=== PATIENT | female | born 1955 | race Caucasian/White ===

== ENCOUNTER 2019-02-17 12:37 | Inpatient (IN) | payer OTHER ==
[2019-02-17] VITALS (9 sets, daily range): BP systolic 121–142; BP diastolic 72–87
[~2019-02-17] VITALS: Ht 175.3 cm; Wt 90.0 kg
[~2019-02-17 12:37] MED LIST: ASPI81TA49 PO; LISI-604 PO; METO-395 PO; TICA90TA PO; heparin 10,000 units/1 ML INJ ONE; heparin, porcine-25,000 units/D5-250ml premix IV ONE; normal saline 1000ML IV soln ONE
[2019-02-17] MEDS ORDERED: heparin 10,000 units/1 ML INJ IV STA (12:39)
[2019-02-17] MEDS ORDERED: fentaNYL/PF 50MCG/1 ML 2ML syringe ONE (12:46)
[2019-02-17] MEDS ORDERED: heparin 1,000unit/ml 10ml vial 10 ML ONE (12:46)
[2019-02-17] MEDS ORDERED: midazolam 2 mg/2 ml injection ONE (12:46)
[2019-02-17] MEDS ORDERED: iohexol 350 MG/1 ML 200ml bottle ONE (12:46)
[2019-02-17] MEDS ORDERED: LIDOcaine 1% (10mg/ml)w/preservative injection 20ml MDV ONE (12:46)
[2019-02-17 12:59] LABS: BASOPHILS # (AUTO) 0.1 X10'3 (0-0.2); BASOPHILS % (AUTO) 0.9 % (0-1); EOSINOPHILS # (AUTO) 0.2 X10'3 (0-0.9); HEMATOCRIT 38.6 % (35.0-45.0); HEMOGLOBIN 12.8 g/dl (12.0-16.0); LYMPHOCYTES # (AUTO) 1.7 X10'3 (1.1-4.8); LYMPHOCYTES % (AUTO) 24.5 % (21-51); MEAN CORPUSCULAR HEMOGLOBIN 28.9 PG (27.0-31.0); MEAN CORPUSCULAR HGB CONC 33.3 g/dL (33.0-36.5); MEAN CORPUSCULAR VOLUME 86.6 FL (78-98); MEAN PLATELET VOLUME 7.2 FL (7.4-10.4); MONOCYTES # (AUTO) 0.8 X10'3 (0-0.9); MONOCYTES % (AUTO) 12.3 % (2-12); NEUTROPHILS % (AUTO) 59.3 % (42-75); PLATELET COUNT 233 X10'3 (140-440); RED BLOOD COUNT 4.45 X10'6 (4.20-5.60); RED CELL DISTRIBUTION WIDTH 13.3 % (11.5-14.5); WHITE BLOOD COUNT 6.8 X10'3 (4.5-11.0)
--- NOTE | 2019-02-17 13:00 | NUR ---
[facility] TO [facility] JAMIA BARRON PT TO MANA[address].
[2019-02-17 13:10] LABS: ALANINE AMINOTRANSFERASE 30 U/L (12-78); ALBUMIN 3.5 G/DL (3.4-5.0); ALBUMIN/GLOBULIN RATIO 1.1 (1.1-1.5); ALKALINE PHOSPHATASE 85 IU/L (46-116); ANION GAP 14 (8-16); ASPARTATE AMINO TRANSFERASE 20 U/L (10-37); BILIRUBIN,TOTAL 0.5 MG/DL (0.1-1.0); BLOOD UREA NITROGEN 21 MG/DL (7-18); BUN/CREATININE RATIO 19.6 (6.6-38.0); CALCIUM 9.1 MG/DL (8.5-10.1); CHLORIDE 109 MMOL/L (99-107); CREATININE 1.07 MG/DL (0.40-0.90); GLUCOSE 138 MG/DL (70-104); POTASSIUM 3.1 MMOL/L (3.5-5.1); SODIUM 143 MMOL/L (135-145); TOTAL CARBON DIOXIDE 20.3 MMOL/L (24-32); TOTAL PROTEIN 6.8 G/DL (6.4-8.2); eGFR 52 ML/MIN
[2019-02-17 13:11] LABS: INR 1.1 INR; PARTIAL THROMBOPLASTIN TIME 23 SECONDS (22-32)
[2019-02-17] MEDS ORDERED: tirofiban 5mg in NS 100mL 100 ML IV ONE (13:15)
[2019-02-17 13:17] LABS: MAGNESIUM 1.7 MG/DL (1.5-2.4)
[2019-02-17] MEDS ORDERED: ticagrelor 90mg tablet ONE (13:30)
--- NOTE | 2019-02-17 13:45 | NUR ---
Received report from Tanesha BLANDON from slab puller and had opportunity to ask questions. Patient will be admitted to room 3024A.
--- NOTE | 2019-02-17 13:57 | NUR ---
patient admitted to room 3024A, accompanied by 2 lab scientist RNs. Patient transferred to bed. Vital signs taken and stable-BP 135/75, O2 97, HR 65, Pain 1/10 Temp 97.8
--- NOTE | 2019-02-17 14:23 | NUR ---
PAGER ID: [phone] MESSAGE: Faina [phone]. Coby Snigh 3024A. 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 Thank you!
[2019-02-17] MEDS ORDERED: proCHLORperazine 10 MG/2 ml inj IV PRN (14:30)
[2019-02-17] MEDS ORDERED: ondansetron/PF 4mg/2ml inj IV PRN (14:30)
[2019-02-17] MEDS ORDERED: HYDROcodone/acetaminophen 5mg/325mg tablet PO PRN (14:30)
[2019-02-17] MEDS ORDERED: nitroGLYCERIN 0.4mg SUBLingual tab SL PRN (14:30)
[2019-02-17] MEDS ORDERED: tirofiban 5mg in NS 100mL 100 ML IV SCH (14:30)
[2019-02-17] MEDS ORDERED: normal saline 1000ml 1,000 ML IV SCH (14:30)
--- NOTE | 2019-02-17 15:30 | NUR ---
Upon continuous reassessment of patient surgical site, noticed bleeding into dressing gauze. Got help from another nurse who held pressure while I called Dr Rangel. Per Dr Rangel, stopped Aggrastat and placed FemStop. Pedal pulses remain strong. Will continue to monitor closely
--- NOTE | 2019-02-17 17:49 | NUR ---
Per Dr Rangel, extending time s/p cath to lay flat from 4 hours to 6 hours due to placement of FemStop, which will be 2030. Reassess at that time if it is appropriate to allow patient to come off of bedrest and remove Femstop.
--- NOTE | 2019-02-17 17:59 | NUR ---
Patients potassium is 3.1. Patient currently unable to swallow in supine position, notified PM nurse to replace once patients mobility is increased.
--- NOTE | 2019-02-17 18:18 | NUR ---
Problems reprioritized. Patient report given, questions answered & plan of care reviewed with Matthew BLANDON and Leo BLANDON. Addendum: 02/17/19 at 1836 by Faina Winkler RN Assessed cath site/Femstop site with both RN's, no signs of bleeding or hematoma present.
--- NOTE | 2019-02-17 18:38 | NUR ---
Patient in room PCU 3024. I have received report from jessica and had the opportunity to ask questions and assume patient care.
--- NOTE | 2019-02-17 18:41 | NUR ---
Patient in room PCU 3027T. I have received report from JAMIA Eisenberg and had the opportunity to ask questions and assume patient care. Patient awake for bedside report and has at bedside. NS infusing at 100 mL/hr. Will continue to monitor closely.
--- NOTE | 2019-02-17 20:30 | NUR ---
Fem stop removed at 2029. No evidence of active bleed. Minimal bruising and discoloration surrounding catheter site. No palpable or visible hematoma anteriorly or posteriorly. Dorsalis Pedal pulses easily palpable. Will continue post-op vital signs and assess DP's.
[2019-02-17] MEDS ORDERED: potassium Cl 20 mEq SR tablet PO PRN (20:35)
[2019-02-17] MEDS ORDERED: potassium Cl 40MEQ/NS 500ml 500 ML IV PRN ×2 (20:35)
[2019-02-17] MEDS: ticagrelor 90mg tablet PO SCH (20:56)
[2019-02-17] MEDS: potassium Cl 20 mEq SR tablet PO PRN (21:04)
[2019-02-18] MEDS: potassium Cl 20 mEq SR tablet PO PRN ×2 (01:52→05:24)
[2019-02-18 02:18] VITALS: BP 151/97
[2019-02-18] MEDS: HYDROcodone/acetaminophen 10/325mg tab PO PRN ×3 (03:00→16:33)
[2019-02-18 06:00] VITALS: BP 140/90
[2019-02-18 06:04] LABS: BASOPHILS % (AUTO) 0.2 % (0-1); EOSINOPHILS % (AUTO) 0.3 % (0-6); HEMATOCRIT 37.8 % (35.0-45.0); HEMOGLOBIN 12.6 g/dl (12.0-16.0); LYMPHOCYTES # (AUTO) 0.9 X10'3 (1.1-4.8); LYMPHOCYTES % (AUTO) 7.7 % (21-51); MEAN CORPUSCULAR HEMOGLOBIN 28.8 PG (27.0-31.0); MEAN CORPUSCULAR HGB CONC 33.3 g/dL (33.0-36.5); MEAN CORPUSCULAR VOLUME 86.7 FL (78-98); MEAN PLATELET VOLUME 7.3 FL (7.4-10.4); MONOCYTES # (AUTO) 1.4 X10'3 (0-0.9); MONOCYTES % (AUTO) 12.1 % (2-12); NEUTROPHILS # (AUTO) 9.4 X10'3 (1.8-7.7); NEUTROPHILS % (AUTO) 79.7 % (42-75); PLATELET COUNT 225 X10'3 (140-440); RED BLOOD COUNT 4.37 X10'6 (4.20-5.60); RED CELL DISTRIBUTION WIDTH 13.6 % (11.5-14.5); WHITE BLOOD COUNT 11.8 X10'3 (4.5-11.0)
--- NOTE | 2019-02-18 06:16 | NUR ---
Problems reprioritized. Patient report given, questions answered & plan of care reviewed with JAMIA Eisenberg and SN Jaspal.
[2019-02-18 06:25] LABS: ALBUMIN 3.3 G/DL (3.4-5.0); ANION GAP 12 (8-16); BLOOD UREA NITROGEN 13 MG/DL (7-18); BUN/CREATININE RATIO 18.1 (6.6-38.0); CALCIUM 8.4 MG/DL (8.5-10.1); CHLORIDE 108 MMOL/L (99-107); CHOL/HDL RATIO 3.4 (0.00-4.99); CHOLESTEROL 153 MG/DL (0-200); CREATININE 0.72 MG/DL (0.40-0.90); GLUCOSE 126 MG/DL (70-104); HDL CHOLESTEROL 45 MG/DL (35-60); LDL CHOLESTEROL 91 MG/DL (50-100); POTASSIUM 4.1 MMOL/L (3.5-5.1); SODIUM 140 MMOL/L (135-145); TOTAL CARBON DIOXIDE 20.1 MMOL/L (24-32); TRIGLYCERIDES 123 MG/DL (20-135); eGFR 82 ML/MIN
--- NOTE | 2019-02-18 06:40 | NUR ---
Patient in room PCU 3024A. I have received report from Leo BLANDON and had the opportunity to ask questions and assume patient care. Addendum: 02/18/19 at 0702 by Faina Winkler RN Assessed right groin cath site. Site is soft with no sign of hematoma/induration.
[2019-02-18] MEDS: atorvastatin 20mg tablet PO SCH (07:41)
[2019-02-18] MEDS: metoprolol succinate 25mg (24-HOUR) SR. Tablet PO SCH (07:41)
[2019-02-18] MEDS: aspirin 81mg tab.chew PO SCH (07:42)
[2019-02-18] MEDS: ticagrelor 90mg tablet PO SCH ×2 (07:42→21:03)
[2019-02-18] MEDS ORDERED: lisinopril 5mg tablet PO SCH ×2 (08:00→21:00)
[2019-02-18] MEDS ORDERED: pneumococcal 23-VAL P-sac vacc 25 mcg/0.5ml vial IMVAC ONE (10:00)
[2019-02-18 11:00] VITALS: BP 123/82
[2019-02-18 15:00] VITALS: BP 124/79
--- NOTE | 2019-02-18 18:15 | NUR ---
Patient in room PCU 3026O. I have received report from JAMIA Eisenberg and had the opportunity to ask questions and assume patient care. Patient is awake for bedside report and daughter is in room. SL and stable at this time. Will continue to monitor closely.
--- NOTE | 2019-02-18 18:28 | NUR ---
Problems reprioritized. Patient report given, questions answered & plan of care reviewed with Leo BLANDON and Graham BLANDON.
[2019-02-18 19:00] VITALS: BP 130/84
[2019-02-18 23:00] VITALS: BP 113/77
[2019-02-19 03:00] VITALS: BP 112/75
[2019-02-19 05:14] LABS: BASOPHILS % (AUTO) 0.5 % (0-1); EOSINOPHILS # (AUTO) 0.2 X10'3 (0-0.9); EOSINOPHILS % (AUTO) 2.1 % (0-6); HEMATOCRIT 34.9 % (35.0-45.0); HEMOGLOBIN 11.7 g/dl (12.0-16.0); LYMPHOCYTES # (AUTO) 1.1 X10'3 (1.1-4.8); LYMPHOCYTES % (AUTO) 13.2 % (21-51); MEAN CORPUSCULAR HEMOGLOBIN 28.6 PG (27.0-31.0); MEAN CORPUSCULAR HGB CONC 33.6 g/dL (33.0-36.5); MEAN CORPUSCULAR VOLUME 85.1 FL (78-98); MEAN PLATELET VOLUME 7.4 FL (7.4-10.4); MONOCYTES % (AUTO) 11.8 % (2-12); NEUTROPHILS # (AUTO) 5.9 X10'3 (1.8-7.7); NEUTROPHILS % (AUTO) 72.4 % (42-75); PLATELET COUNT 192 X10'3 (140-440); WHITE BLOOD COUNT 8.2 X10'3 (4.5-11.0)
[2019-02-19 05:25] LABS: ALBUMIN 3.2 G/DL (3.4-5.0); ANION GAP 8 (8-16); BLOOD UREA NITROGEN 9 MG/DL (7-18); BUN/CREATININE RATIO 11.7 (6.6-38.0); CALCIUM 8.9 MG/DL (8.5-10.1); CHLORIDE 107 MMOL/L (99-107); CREATININE 0.77 MG/DL (0.40-0.90); GLUCOSE 101 MG/DL (70-104); POTASSIUM 3.9 MMOL/L (3.5-5.1); SODIUM 138 MMOL/L (135-145); TOTAL CARBON DIOXIDE 22.9 MMOL/L (24-32); eGFR 75 ML/MIN
[2019-02-19 06:00] VITALS: BP 117/82
--- NOTE | 2019-02-19 06:15 | NUR ---
[place] documentation: I have reviewed and agree with all interventions, assessments performed and documented by Leo BLANDON. [place] Medication Administration: For this medication-pass time frame, all medication were reviewed, dispensed, administered and documented per hospital policy by Leo BLANDON.
--- NOTE | 2019-02-19 06:16 | NUR ---
Problems reprioritized. Patient report given, questions answered & plan of care reviewed with JAMIA Eisenberg and JAMIA Schafer.
[2019-02-19] MEDS ORDERED: ATOR80TA PO (06:27)
[2019-02-19] MEDS ORDERED: NITR0.4T51 SL (06:27)
[2019-02-19] MEDS ORDERED: TICA90TA PO (06:27)
--- NOTE | 2019-02-19 06:43 | NUR ---
Patient in room PCU 3024A. I have received report from Graham BLANDON and Leo BLANDON and had the opportunity to ask questions and assume patient care.
[2019-02-19] MEDS: ticagrelor 90mg tablet PO SCH (07:48)
[2019-02-19] MEDS: atorvastatin 20mg tablet PO SCH (07:48)
[2019-02-19] MEDS: aspirin 81mg tab.chew PO SCH (07:48)
[2019-02-19] MEDS: metoprolol succinate 25mg (24-HOUR) SR. Tablet PO SCH (07:48)
--- NOTE | 2019-02-19 09:21 | NUR ---
Per MD patient stable for discharge. New prescriptions called in to [facility] in [place], discharge packet provided and all questions answered, IV's discontinued with catheters in tact, tele removed, all belongings sent with patient, escorted out in wheelchair accompanied by staff and family.
--- NOTE | 2019-02-19 10:30 | NUR ---
[place] documentation: I have reviewed and agree with all interventions, assessments performed and documented by Hanh BLANDON.
== END 2019-02-19 09:27 | disposition home or self-care (01) | DRG 246 ==
LOC: ER 12:37 → PCU 3S 15:37 → CMPBEDREQ 19:27
PROVIDERS: ADMIT Internal Medicine Interventional Cardiology; ATTEND Internal Medicine Interventional Cardiology
PROC: 4A023N7 Measurement of Cardiac Sampling and Pressure, Left Heart, Percutaneous Approach (ICD-10-PCS; principal; 2019-02-17)
PROC: 027034Z Dilation of Coronary Artery, One Artery with Drug-eluting Intraluminal Device, Percutaneous Approach (ICD-10-PCS; 2019-02-17)
PROC: B2111ZZ Fluoroscopy of Multiple Coronary Arteries using Low Osmolar Contrast (ICD-10-PCS; 2019-02-17)
PROC: B2151ZZ Fluoroscopy of Left Heart using Low Osmolar Contrast (ICD-10-PCS; 2019-02-17)
PROC: B41F1ZZ Fluoroscopy of Right Lower Extremity Arteries using Low Osmolar Contrast (ICD-10-PCS; 2019-02-17)
DX: T82.867A Thrombosis due to cardiac prosthetic devices, implants and grafts, initial encounter (principal); I21.A9 Other myocardial infarction type; E78.00 Pure hypercholesterolemia, unspecified; I25.119 Atherosclerotic heart disease of native coronary artery with unspecified angina pectoris; Y83.1 Surgical operation with implant of artificial internal device as the cause of abnormal reaction of the patient, or of later complication, without mention of misadventure at the time of the procedure; E78.5 Hyperlipidemia, unspecified; Z95.5 Presence of coronary angioplasty implant and graft; Y92.89 Other specified places as the place of occurrence of the external cause; I25.2 Old myocardial infarction
CPT/HCPCS: 93306; 93458; 96374; 99285; C9606; 36415; 71045; 80048; 80053; 80061; 83735; 83880; 84484; 85025; 85610; 85730; 87070; 90732; 93005; 99152; 99153; A4620; A6257; C1725; C1760; C1769; C1874; G0378; J1644; J2001; J2250; J2405; J3010; J3246; J7030; Q9967

== ENCOUNTER 2019-03-01 11:59 | Emergency (ER) | payer OTHER ==
[~2019-03-01] VITALS: Ht 175.3 cm; Wt 95.0 kg
[~2019-03-01 11:59] MED LIST changes: +ATOR80TA PO; +NITR0.4T51 SL; -heparin 10,000 units/1 ML INJ ONE; -heparin, porcine-25,000 units/D5-250ml premix IV ONE; -normal saline 1000ML IV soln ONE
[2019-03-01 13:22] LABS: BASOPHILS # (AUTO) 0.1 X10'3 (0-0.2); BASOPHILS % (AUTO) 0.9 % (0-1); EOSINOPHILS # (AUTO) 0.1 X10'3 (0-0.9); EOSINOPHILS % (AUTO) 2.1 % (0-6); HEMOGLOBIN 11.3 g/dl (12.0-16.0); LYMPHOCYTES # (AUTO) 1.2 X10'3 (1.1-4.8); LYMPHOCYTES % (AUTO) 17.1 % (21-51); MEAN CORPUSCULAR HEMOGLOBIN 28.7 PG (27.0-31.0); MEAN CORPUSCULAR HGB CONC 33.4 g/dL (33.0-36.5); MEAN CORPUSCULAR VOLUME 85.9 FL (78-98); MONOCYTES # (AUTO) 0.7 X10'3 (0-0.9); MONOCYTES % (AUTO) 9.5 % (2-12); NEUTROPHILS # (AUTO) 5.1 X10'3 (1.8-7.7); NEUTROPHILS % (AUTO) 70.4 % (42-75); PLATELET COUNT 248 X10'3 (140-440); RED BLOOD COUNT 3.95 X10'6 (4.20-5.60); RED CELL DISTRIBUTION WIDTH 13.6 % (11.5-14.5); WHITE BLOOD COUNT 7.2 X10'3 (4.5-11.0)
[2019-03-01 13:38] LABS: ALANINE AMINOTRANSFERASE 26 U/L (12-78); ALBUMIN 3.3 G/DL (3.4-5.0); ALKALINE PHOSPHATASE 70 IU/L (46-116); ANION GAP 10 (8-16); ASPARTATE AMINO TRANSFERASE 20 U/L (10-37); BILIRUBIN,TOTAL 0.5 MG/DL (0.1-1.0); BLOOD UREA NITROGEN 18 MG/DL (7-18); BUN/CREATININE RATIO 20.7 (6.6-38.0); CALCIUM 8.8 MG/DL (8.5-10.1); CHLORIDE 109 MMOL/L (99-107); CREATININE 0.87 MG/DL (0.40-0.90); GLUCOSE 87 MG/DL (70-104); INR 1.3 INR; PARTIAL THROMBOPLASTIN TIME 33 SECONDS (22-32); POTASSIUM 4.1 MMOL/L (3.5-5.1); SODIUM 143 MMOL/L (135-145); TOTAL CARBON DIOXIDE 24.3 MMOL/L (24-32); TOTAL PROTEIN 6.7 G/DL (6.4-8.2); eGFR 66 ML/MIN
[2019-03-01 14:00] VITALS: BP 128/78
== END 2019-03-01 17:58 | disposition home or self-care (01) ==
LOC: ER 11:59
DX: I49.9 Cardiac arrhythmia, unspecified (principal); R79.89 Other specified abnormal findings of blood chemistry; I25.10 Atherosclerotic heart disease of native coronary artery without angina pectoris; E78.00 Pure hypercholesterolemia, unspecified; I25.2 Old myocardial infarction; Z79.82 Long term (current) use of aspirin; Z79.899 Other long term (current) drug therapy; Z98.890 Other specified postprocedural states
CPT/HCPCS: 36415; 80053; 84484; 85025; 85610; 85730; 93005; 99284